=== PATIENT | female | born 1990 | race Caucasian/White ===

== ENCOUNTER 2018-04-07 00:23 | Emergency (ER) | payer OTHER, BC ==
[2018-04-07 03:33] LABS: URINE PH (Dip) POC 5.5 (5.0-8.5)
[2018-04-07 03:33] LABS: URINE BLOOD (Dip) POC 3+ (NEGATIVE); URINE GLUCOSE (Dip) POC Negative (NEGATIVE); URINE KETONES (Dip) POC Negative (NEGATIVE); URINE LEUKOCYTE EST (Dip) POC Negative (NEGATIVE); URINE NITRITE (Dip) POC Negative (NEGATIVE); URINE TOTAL PROTEIN POC 2+ (NEGATIVE)
[2018-04-07] MEDS: KETOROLAC 15 MG INJ IM (04:01)
== END 2018-04-07 07:10 | disposition left against medical advice (07) ==
LOC: FTE 07:10
DX: R30.0 Dysuria (principal); R10.2 Pelvic and perineal pain
CPT/HCPCS: 76775; 76830; 76856; 81003; 81025; 99285-25

== ENCOUNTER 2018-11-12 06:52 | Emergency (ER) | payer OTHER | END 2018-11-12 08:05 | disposition home or self-care (01) | LOC: FTE 06:52 | DX: J06.9 Acute upper respiratory infection, unspecified (principal) | CPT/HCPCS: 99282; Z7502 ==

== ENCOUNTER 2018-11-21 09:59 | Emergency (ER) | payer OTHER | END 2018-11-21 11:32 | disposition home or self-care (01) | LOC: FTE 09:59 | DX: R05 Cough (principal) | CPT/HCPCS: 99283; Z7502 ==